=== PATIENT | male | born 1955 | race Caucasian/White ===

== ENCOUNTER → 2018-09-22 | Outpatient (CLI) | payer OTHER | LOC: CAT 15:06 | DX: Z13.6 Encounter for screening for cardiovascular disorders (principal); E78.00 Pure hypercholesterolemia, unspecified ==

== ENCOUNTER → 2020-03-28 | Outpatient (CLI) | payer OTHER | LOC: SJCVCIMAG 08:56 | DX: I45.10 Unspecified right bundle-branch block (principal); I10 Essential (primary) hypertension; E78.5 Hyperlipidemia, unspecified; R93.1 Abnormal findings on diagnostic imaging of heart and coronary circulation ==